=== PATIENT | male | born 1990 | race Caucasian/White ===

== ENCOUNTER 2020-07-13 17:49 | Emergency (ER) | payer OTHER, SELFPAY ==
--- NOTE | 2020-07-13 17:55 | ED.URI ---
HPI - URI/Sore Throat General Chief Complaint: Upper Respiratory Infection Stated Complaint: Sinus Pressure and headache Time Seen by Provider: 07/13/20 17:55 Source: patient and RN notes reviewed History of Present Illness HPI Narrative: Patient is a 29-year-old male who presents the urgent care with complaints of sinus pressure and headache. Patient states is been going on for 1 week and he believes he picked it up from his daughter who had a cold last week. Patient denies of any fever, chills, nausea, vomiting, shortness of breath. Patient denies of any known exposure to Covid, influenza or strep. Patient denies of a sore throat but states he does have a lot of drainage as well as a mild nonproductive cough. Patient states that he has been taking cold and flu medication [id number] as well as Tylenol for the headache. No other acute complaints. No acute distress noted. Patient aware of the plan of care. Some parts of this dictation were generated by voice recognition software and may contain typographical and/or grammatical inaccuracies. Related Data Allergies Allergy/AdvReac Type Severity Reaction Status Date / Time No Known Allergies Allergy Verified 07/13/20 17:58 Review of Systems Review of Systems: Narrative: CONSTITUTIONAL: Denies fever, chills, or sweats. EYES: Denies visual changes, redness, or discharge. ENT: Reports of sinus pressure, sinus congestion, postnasal drainage and rhinorrhea CARDIOVASCULAR: Denies chest pain, palpitations, or edema. RESPIRATORY: Reports of nonproductive cough without dyspnea GASTROINTESTINAL: Denies abdominal pain, nausea, vomiting, or diarrhea. GENITOURINARY: Denies dysuria or hematuria. SKIN: Denies rash or itching. MUSCULOSKELETAL: Denies back pain, joint pain, or myalgia. NEUROLOGIC: Reports of intermittent headaches All other systems reviewed are negative, except as documented in HPI. PMFSH Comments At the time of my signature, I reviewed and agree with the nursing past medical, surgical, social, and family history. There is no relevant family history pertinent to the patient complaint. Exam Narrative: Exam Narrative: GENERAL: This is a well-nourished, well-developed patient, in no apparent distress. HEAD: normocephalic, atraumatic. Frontal sinus tenderness EYES: PERRL. Sclera clear/white. Vision is grossly intact. EARS: External ears normal, auditory canals clear and without drainage, mild fluid noted behind bilateral TMs without otitis, TMs normal without perforation. Hearing grossly intact. NOSE: External nose normal with no obvious nasal discharge, mild erythemic nares with clear rhinorrhea. THROAT: Mucous membranes moist, posterior pharynx clear. Moderate postnasal drainage NECK: Neck supple, non-tender without lymphadenopathy CARDIOVASCULAR: Regular rate and rhythm without murmurs, gallops, or rubs. RESPIRATORY: Clear to auscultation. Breath sounds equal bilaterally. No wheezes, rales, or rhonchi. GASTROINTESTINAL: Abdomen soft, non-tender, nondistended. Bowel sounds are active. No hepato-splenomegaly, or palpable masses. No guarding. SKIN: warm, intact with no suspicious lesions or rash, good texture and turgor. NEURO: awake, alert, and oriented to person, place and time. There were no obvious focal neurologic abnormalities. EXTREMITIES: No clubbing, cyanosis, or edema. Course Vital Signs Vital signs: Vital Signs Temperature 98.6 F 07/13/20 17:56 Pulse Rate 82 07/13/20 17:56 Respiratory Rate 18 07/13/20 17:56 Blood Pressure 137/81 07/13/20 17:56 Pulse Oximetry 99 07/13/20 17:56 Temperature 98.6 F 07/13/20 17:56 Pulse Rate 82 07/13/20 17:56 Respiratory Rate 18 07/13/20 17:56 Blood Pressure 137/81 07/13/20 17:56 Pulse Oximetry 99 07/13/20 17:56 Reviewed MDM - URI/Sore Throat MDM Narrative Medical decision making narrative: Advised the patient to use an [id number] antihistamine such as Claritin/Zyrtec in conjunction with
[2020-07-13 17:56] VITALS: BP 137/81; PULSE 82; RESP 18; TEMP 37; O2SAT 99
== END 2020-07-13 18:06 | disposition home or self-care (01) ==
PROVIDERS: Emergency Provider Nurse Practitioner Family
DX: J01.80 Other acute sinusitis (principal)
CPT/HCPCS: 99213; G0463

== ENCOUNTER 2022-11-19 14:52 | Emergency (ER) | payer OTHER, SELFPAY ==
[2022-11-19 15:00] VITALS: BP 133/80; PULSE 69; RESP 20; TEMP 36.7; O2SAT 100
--- NOTE | 2022-11-19 15:31 | ED.WOUNDLAC ---
HPI - Wound/Laceration General Chief Complaint: Wound/Laceration Stated Complaint: lac on head Time Seen by Provider: 11/19/22 15:15 Source: patient, RN notes reviewed and old records reviewed Mode of arrival: ambulatory Limitations: no limitations History of Present Illness HPI narrative: 31-year-old male presents to [facility] with complaints of laceration to his scalp left frontal scalp area at hairline. He reports that he hit head on hook on the door of toilet stall at work around 0930 this morning.. Patient reports no LOC or any other wounds. Patient has 2cm linear laceration to frontal left scalp area at hairline with some blood oozing from wound area.Patient reports that his tetanus is up to date. he is in . Onset (ago): hour(s) (0930 this morning) Location: scalp Place: work Patient tetanus UTD: Yes Treatments prior to arrival: bandage Related Data Allergies Allergy/AdvReac Type Severity Reaction Status Date / Time No Known Allergies Allergy Verified 11/19/22 15:21 Review of Systems Review of Systems: CONSTITUTIONAL: Denies fever, chills, or sweats. CARDIOVASCULAR: Denies chest pain, palpitations, or edema. RESPIRATORY: Denies cough or dyspnea. SKIN: Reports laceration to the scalp frontal left scalp area at hairline MUSCULOSKELETAL: Denies musculoskeletal pain NEUROLOGIC: Denies numbness, or weakness.denies any LOC All systems reviewed & are unremarkable except as noted in HPI and below PMFSH Social History Social History (Updated 11/20/22 @ 21:15 by Judi Marie NP) Smoking status: Never smoker Alcohol intake: current Alcohol use details: social Substance use type: does not use Living arrangements: with family Gender identity (if verbalized by the patient): Male Comments At time of signature, agree with nursing past medical, surgical, social and family history. There is no relevant family history pertinent to the presenting complaint Exam Narrative: GENERAL: Well-appearing, well-nourished, and in no acute distress. HEAD: Normocephalic, atraumatic. NECK: Supple. no lymphadenopathy CHEST: Clear to auscultation. No respiratory distress.SAO2 100% on room air HEART: Regular rate and rhythm. No murmur heard. Normal peripheral pulses. EXTREMITIES: Normal range of motion. No edema. SKIN: Warm, dry, no rash. Reports scalp laceration to frontal left scalp at hairline 2cm linear laceration NEURO: No focal deficits. Alert and oriented x3. denies any LOC at time of incident Course Course Level of Care: Express Care Visit Vital Signs Vital signs: Vital Signs Temperature 36.7 C 11/19/22 15:00 Pulse Rate 69 11/19/22 15:00 Respiratory Rate 20 11/19/22 15:00 Blood Pressure 133/80 11/19/22 15:00 Pulse Oximetry 100 11/19/22 15:00 Oxygen Delivery Room Air 11/19/22 15:00 Temperature 36.7 C 11/19/22 15:00 Pulse Rate 69 11/19/22 15:00 Respiratory Rate 20 11/19/22 15:00 Blood Pressure 133/80 11/19/22 15:00 Pulse Oximetry 100 11/19/22 15:00 Oxygen Delivery Room Air 11/19/22 15:00 Procedures Laceration scalp: Date: 11/19/22 Time: 15:30 Site: scalp Side (If applicable): left Size (cm): 2 Description: linear Depth: simple, single layer Local Anesthetic: lidocaine 1% Amount of anesthesia used (mL): 2 Pre-repair: wound explored, irrigated and irrigated extensively ====== Skin Level ====== Skin layer closed with: alina Number of sutures: 5 ====== Subcutaneous Layer ====== ====== Muscle Layer ====== ====== Tendon Layer ====== Dressing: Scalp laceration cleansed with wound cleanser and irrigated wound localized with Lidocaine 1% 2 cc edges approximated and alina X 5 applied, patient tolerated well. MDM - Wound/Laceration MDM Narrative Medical decision making narrative: Wound explored for foreign body and copious irrigati
== END 2022-11-19 16:04 | disposition home or self-care (01) ==
PROVIDERS: Emergency Provider Registered Nurse
DX: S01.01XA Laceration without foreign body of scalp, initial encounter (principal); W22.8XXA Striking against or struck by other objects, initial encounter
CPT/HCPCS: 12001; 99213; G0463

== ENCOUNTER 2022-12-07 08:52 | Emergency (ER) | payer OTHER, SELFPAY ==
--- NOTE | ~2022-12-07 | XR_ITS ---
XR lumbar spine 2-3V 12/07/2022 10:05 Indication: Low back pain for 2 days Procedure: 3 views lumbar spine Comparison: No prior studies for comparison. Findings: Vertebral body heights are maintained. No fracture, subluxation or dislocation. Pedicles in tact. Sacral foramen are symmetric. No evidence for spondylolisthesis. Impression: 1: No significant abnormality of the lumbar spine. Reviewed, dictated and finalized at location A. Impression: 1: No significant abnormality of the lumbar spine.
[2022-12-07 09:22] VITALS: BP 114/77; PULSE 70; RESP 20; TEMP 36.4; O2SAT 98
--- NOTE | 2022-12-07 09:38 | ED.BACK ---
HPI - Back Pain/Injury General Chief Complaint: Back Pain/Injury Stated Complaint: back pain Time Seen by Provider: 12/07/22 09:01 Source: patient Mode of arrival: ambulatory Limitations: no limitations History of Present Illness HPI Narrative: 31-year-old male presents to [facility] with complaints of lower back pain for the past 2-3 days. Patient denies injury. Patient reports the pain is constant. Patient denies numbness, tingling or bowel or bladder problems. Patient has been applying heat and taking [id number] ibuprofen with minimal relief. Patient denies prior back pain. Patient reports that he did have an adjustment from a chiropractor yesterday which helped the pain for approximately 20 minutes. MD elicited complaint: back pain Onset (ago): day(s) (2) Timing: constant Similar Symptoms Previously: No Location: lumbar spine Radiation: none Exacerbating factors: lifting Relieving factors: none Treatments prior to arrival: heat therapy and NSAIDS Related Data Allergies Allergy/AdvReac Type Severity Reaction Status Date / Time No Known Allergies Allergy Verified 12/07/22 09:38 Review of Systems Constitutional: Constitutional: Denies chills, Denies fatigue, Denies fever(s) and Denies weakness ENT: Denies dizziness Cardiovascular: Cardiovascular: Denies chest pain Respiratory: Respiratory: Denies cough, Denies dyspnea and Denies wheezing Gastrointestinal: Gastrointestinal: Denies diarrhea, Denies nausea and Denies vomiting Genitourinary: Genitourinary: Denies dysuria Musculoskeletal: Musculoskeletal: Reports back pain, Denies myalgias, Denies joint swelling and Denies muscle cramps Integumentary/Breasts: Skin/Breast: Denies pruritus, Denies erythema and Denies rash Neurologic: Denies dizziness, Denies syncope and Denies headache(s) PMFSH Social History Social History Smoking status: Never smoker Alcohol intake: current Alcohol use details: social Substance use type: does not use Living arrangements: with family Gender identity (if verbalized by the patient): Male Comments At time of signature, I agree with nursing past medical, surgical, social and family history. There is no relevant family history pertinent to the presenting complaint. Exam Const: General: healthy appearing and no acute distress Nutritional Appearance: well nourished Orientation/consciousness: patient oriented x3 Limitations: no limitations HENMT: Head: normal to inspection Eyes: Conjunctivae: conjunctivae normal Neck: Neck: normal visual inspection Resp: Effort & Inspection: normal respiratory effort and not labored Auscultation: clear to auscultation bilaterally, no crackles, no rales, no rhonchi and no wheezes Cardio: Rate: regular rate Rhythm: regular rhythm Heart sounds: no murmurs GI: GI Palp: Yes Soft to palpation, No Tenderness to palpation present (GI), No Guarding due to palpation present (GI) and No Rigid due to palpation Back/Spine/Pelvis: Back: no CVA tenderness Other: Pain noted to lumbar region upon palpation. There is no swelling, bruising, erythema rash or open wounds noted. Full range of motion to back is noted. Gait is normal. Skin: General skin exam: normal color Rashes: no rashes Wounds: no wounds Neuro: General: patient oriented x3 Speech: normal speech Gait exam (Neuro): Normal gait present Extrem: General: normal to inspection Psych: Affect: normal affect Attitude: cooperative Course Course Level of Care: Express Care Visit Vital Signs Vital signs: Vital Signs Temperature 36.4 C 12/07/22 09:22 Pulse Rate 70 12/07/22 09:22 Respiratory Rate 20 12/07/22 09:22 Blood Pressure 114/77 12/07/22 09:22 Pulse Oximetry 98 12/07/22 09:22 Oxygen Delivery Room Air 12/07/22 09:22 Temperature 36.4 C 12/07/22 09:22 Pulse Rate 70 12/07/22 09:22 Respiratory Rate 20 12/07/22 09:22
== END 2022-12-07 10:19 | disposition home or self-care (01) ==
PROVIDERS: Emergency Provider Nurse Practitioner Family
DX: M54.50 Low back pain, unspecified (principal)
CPT/HCPCS: 72100; 81003; 99213; G0463

== ENCOUNTER 2023-01-27 17:00 | Emergency (ER) | payer OTHER, SELFPAY ==
[2023-01-27 17:11] VITALS: BP 144/74; PULSE 66; RESP 16; TEMP 36.4; O2SAT 96
--- NOTE | 2023-01-27 17:36 | ED.EAR ---
HPI - Ear Problem General Chief complaint: Ear Stated complaint: Ear Pain Time Seen by Provider: 01/27/23 17:37 Source: patient and RN notes reviewed Mode of arrival: ambulatory Limitations: no limitations History of Present Illness HPI Narrative: 32-year-old male presents with concern for nasal congestion for 1 week, ear pain for 4-5 days. He is taking Mucinex without relief. He denies fever or drainage from the ears. MD Complaint: ear pain Related Data Allergies Allergy/AdvReac Type Severity Reaction Status Date / Time No Known Allergies Allergy Verified 12/07/22 09:38 Review of Systems Review of Systems: CONSTITUTIONAL: Denies malaise, chills, sweats, or fever. EYES: Denies visual changes, redness, or discharge. ENT: Reports rhinorrhea, congestion. Denies sinus pain, and sore throat. Reports ear pain CARDIOVASCULAR: Denies chest pain, palpitations, or edema. RESPIRATORY: Denies cough. Denies dyspnea. GASTROINTESTINAL: Denies abdominal pain, nausea, vomiting, diarrhea SKIN: Denies rash or itching. MUSCULOSKELETAL: Denies myalgia. NEUROLOGIC: Denies headache. All systems reviewed & are unremarkable except as noted in HPI and below PMFSH Social History Social History Smoking status: Never smoker Alcohol intake: current Alcohol use details: social Substance use type: does not use Living arrangements: with family Gender identity (if verbalized by the patient): Male Comments At time of signature, agree with nursing past medical, surgical, social and family history. There is no relevant family history pertinent to the presenting complaint Exam Narrative: GENERAL: Well-appearing, well-nourished, and in no acute distress. HEAD: Normocephalic EYES: PERRLA, conjunctivae clear ENT: Nares clear, turbinates edematous, clear discharge. Mucous membranes moist. TM pearly morillo with dull light reflex bilaterally; no tragal tenderness. Oropharynx not erythematous without lesions. Tonsils not enlarged and without exudate, no drooling, no hoarseness, no trismus, uvula midline. NECK: Supple. No lymphadenopathy CHEST: Clear to auscultation, breath sounds equal. No wheezing, rhonchi, rales, or stridor. No respiratory distress, speaks in full sentences. HEART: Regular rate and rhythm. No murmur heard. SKIN: Warm, dry, no rash. NEURO: Alert and oriented x3. PSYCH: Normal mood and affect Course Course Emergency Course: Patient is aware of diagnosis, understands and agrees to treatment plan. Anticipatory guidance given. Patient agrees to follow-up as directed and is aware of reasons to seek care at the emergency department. Portions of this record may have been created with voice recognition software Level of Care: Express Care Visit Vital Signs Vital signs: Vital Signs Temperature 97.5 F L 01/27/23 17:11 Pulse Rate 66 01/27/23 17:11 Respiratory Rate 16 01/27/23 17:11 Blood Pressure 144/74 H 01/27/23 17:11 Pulse Oximetry 96 01/27/23 17:11 Oxygen Delivery Room Air 01/27/23 17:11 Temperature 97.5 F L 01/27/23 17:11 Pulse Rate 66 01/27/23 17:11 Respiratory Rate 16 01/27/23 17:11 Blood Pressure 144/74 H 01/27/23 17:11 Pulse Oximetry 96 01/27/23 17:11 Oxygen Delivery Room Air 01/27/23 17:11 Reviewed. Medical Decision Making MDM Narrative Medical decision making narrative: Differential diagnosis considered: Stovall virus, strep pharyngitis, allergic rhinitis, upper respiratory tract infection, sinusitis, rhinosinusitis, nasopharyngitis. viral pharyngitis, otitis media, otitis externa, otitis effusion, cerumen impaction, foreign body. Exam findings show no acute concerns or changes; patient is non-toxic appearing and is in no distress. Patient is appropriate for outpatient treatment and follow-up. Vital Signs Vital Signs: Vital Signs Temperature 97.5 F L 01/27/23 17:11 Pulse Rate 66 01/27/23 17:11 Respi
== END 2023-01-27 17:45 | disposition home or self-care (01) ==
PROVIDERS: Emergency Provider Nurse Practitioner
DX: H92.09 Otalgia, unspecified ear (principal)
CPT/HCPCS: 99213; G0463

== ENCOUNTER 2024-05-08 15:50 | Emergency (ER) | payer OTHER, SELFPAY ==
--- OUTSIDE RECORDS SUMMARY | 2024-05-08 15:57 | XMS_ITS | Continuity of Care Document ---
Author Name [facility] Organization [facility] Care Team Providers Care Donation Worker Name Role Phone [facility] Unavailable Unavailable Problems Combined list of problems from Department of Defense and Veterans Affairs facilities. It does not include entries that were removed or entered in error. Problem Status Onset Date Problem Type Date of Resolution Comme nts Source Nausea with vomiting, unspecified Active 02/25/2017 Condition DoD Allergies, Adverse Reactions, Alerts Combined list of allergies from Department of Defense and Veterans Affairs facilities. It does not include entries that were removed or entered in error. Substance Category Reaction Severity Reaction type Status Date Reported Comments Source No Known Allergies Drug allergy (disorder) active [facility], [place], [place] Immunizations Combined list of available immunizations from the Department of Defense and Veterans Affairs facilities. Immunization Series Date Given Administered By Site Reaction Lot Number CVX Code Drug Multi Media Specialist Status Comments Source influenza, injectable, quadrivalent- pf 2022 [id number] Seqirus complet ed influenza , injectabl e, quadrival ent-pf 03/01/23 Given Ambulat ory Pharmac y influenza, injectable, quadrivalent- pf 2021 [id number] 150 GlaxoSmithKli ne complet ed influenza , injectabl e, quadrival ent-pf 02/02/22 Given Ambulat ory Pharmac y COVID Vaccine Pfizer 2021 [id number] PFIZER complet ed COVID Vaccine Pfizer 05/26/21 Given Ambulat ory Pharmac y COVID Vaccine Pfizer 2021 [id number] PFIZER complet ed COVID Vaccine Pfizer 04/21/21 Given Ambulat ory Pharmac y influenza, injectable, quadrivalent- pf 2020 [id number] 150 GlaxoSmithKli ne complet ed influenza , injectabl e, quadrival ent-pf 01/11/21 Given Ambulat ory Pharmac y influenza, injectable, quadrivalent 2019 [id number] 158 Seqirus complet ed influenza , injectabl e, quadrival ent 11/13/20 Given Ambulat ory Pharmac y influenza, injectable, quadrivalent 2018 [id number] 158 Seqirus complet ed influenza , injectabl e, quadrival ent 02/09/19 Given Ambulat ory Pharmac y anthrax vaccine 2018 [id number] 24 Emergent Biosolutions complet ed anthrax vaccine 01/28/19 Given Ambulat ory Pharmac y vaccinia (smallpox) vaccine 2018 [id number] 75 Sanofi Pasteur Incorporated complet ed vaccinia (smallpox ) vaccine 11/09/18 Given Ambulat ory Pharmac y anthrax vaccine 2018 [id number] Emergent Biosolutions complet ed anthrax vaccine 11/09/18 Given Ambulat ory Pharmac y anthrax vaccine 1 2018 [id number] 24 Emergent [employer] [place] (MIP) complet ed anthrax vaccine DoD vaccinia (smallpox) vaccine 1 2018 [id number] 75 (SHARDA) complet ed vaccinia (smallpox ) vaccine DoD influenza, injectable, quadrivalent- pf 2017 [id number] 150 GlaxoSmithKli ne complet ed influenza , injectabl e, quadrival ent-pf 02/02/18 Given Ambulat ory Pharmac y typhoid Vi capsular polysaccharid e vac 2017 [id number] 101 sanofi pasteur complet ed typhoid Vi capsular polysacch aride vac 02/02/18 Given Ambulat ory Pharmac y typhoid Vi capsular polysaccharid e vaccine 1 2017 [id number] 101 Sanofi Pasteur (PMC) complet ed typhoid Vi capsular polysacch aride vaccine DoD Influenza, injectable, quadrivalent, preservative free 1 2017 [id number] 150 [employer]line (SKB) complet ed Influenza , injectabl e, quadrival ent, preservat maura free DoD Influenza, inj, MDCK, quadrivalent- pf 2016 [id number] 171 Seqirus complet ed Influenza , inj, MDCK, quadrival ent-pf 02/12/17 Given Ambulat ory Pharmac y Influenza, injectable, Madin Paola Canine Kidney, preservative free, quadrivalent 1 2016 [id number] 171 Seqirus (SEQ) comple t ed Influenza , injectabl e, Madin Paola Canine Kidney, preservat maura free, quadrival ent DoD hepatitis A-hepatitis B vaccine 2016 Candice t Arm [id number] 104 GlaxoSmithKli ne complet ed hepatitis A-hepatit is B vaccine 05/28/16 Given Ambulat ory Pharmac y hepatitis A and hepatitis B vaccine 3 2016 NIURKA HORTON [id number] 104 [facility] ([facility] complet ed hepatitis A and hepatitis B vaccine DoD influenza, seasonal, injectable-pf 2015 zzRig ht Arm [id number] 140 CSL Behring complet ed influenza , seasonal, injectabl e-pf 01/09/16 Given Ambulat ory Pharmac y Influenza, seasonal, injectable, preservative free 0 2015 YNES STERN I [id number] 140 [facility] [employer] [place] ([facility]) complet ed Influenza , seasonal, injectabl e, preservat maura free DoD hepatitis A-hepatitis B vaccine 2015 [id number] 104 GlaxoSmithKli ne complet ed hepatitis A-hepatit is B vaccine 11/24/15 Given Ambulat ory Pharmac y hepatitis A and hepatitis B vaccine 2 2015 [id number] 104 [employer] ([facility]) complet ed hepatitis A and hepatitis B vaccine DoD adenovirus vaccine, live 2015 [id number] Teva Pharmaceutica complet ed adenoviru s vaccine, live 10/21/15 Given Ambulat ory Pharmac y tetanus, diphtheria, acellular pertu is 2015 [id number] 115 GlaxoSmithKli ne complet ed tetanus, diphtheri a, acellular pertussis 10/21/15 Given Ambulat ory Pharmac y meningococcal A,C,Y,W-135 (MCV4P) 2015 [id number] 114 sanofi pasteur complet ed meningoco ccal A,C,Y,W-1 35 (MCV4P) 10/21/15 Given Ambulat ory Pharmac y hepatitis A-hepatitis B vaccine 2015 [id number] 104 GlaxoSmithKli ne complet ed hepatitis A-hepatit is B vaccine 10/21/15 Given Ambulat ory Pharmac y poliovirus vaccine, inactivated 2015 [id number] 10 sanofi pasteur complet ed polioviru s vaccine, inactivat ed 10/21/15 Given Ambulat ory Pharmac y poliovirus vaccine, inactivated 1 2015 [id number] 10 Sanofi Pasteur ([facility]) complet ed polioviru s vaccine, inactivat ed DoD hepatitis A and hepatitis B vaccine 1 2015 [id number] 104 [facility] (SKB) complet ed hepatitis A and hepatitis B vaccine DoD meningococcal polysaccharid e (groups A, C, Y and W-135) diphtheria toxoid conjugate vaccine (MCV4P) 1 2015 [id number] 114 Sanofi Pasteur ([facility]) complet ed meningoco ccal polysacch aride (groups A, C, Y and W-135) diphtheri a toxoid conjugate vaccine (MCV4P) DoD tetanus toxoid, reduced diphtheria toxoid, and acellular pertu is vaccine, adsorbed 1 2015 [id number] 115 [facility] (SKB) complet ed tetanus toxoid, reduced diphtheri a toxoid, and acellular pertussis vaccine, adsorbed DoD Adenovirus, type 4 and type 7, live, oral 1 2015 [id number] [place] [address] ([facility]) complet ed Adenoviru s, type 4 and type 7, live, oral DoD measles, mumps and rubella virus vaccine 1 2015 UNK 03 Unknown (UNK) Not Given measles, mumps and rubella virus vaccine DoD varicella virus vaccine 1 2015 UNK 21 Unknown (UNK) Not Given varicella virus vaccine DoD poliovirus vaccine, inactivated 2003 [id number] 10 sanofi pasteur complet ed polioviru s vaccine, inactivat ed 03/23/03 Given Ambulat ory Pharmac y measles/mumps /rubella virus vaccine 2003 [id number] 03 Merck & Company Inc complet ed measles/m umps/rube lla virus vaccine 03/23/03 Given Ambulat ory Pharmac y tetanus-dipht h toxoids (Td) adult/adol 2001 [id number] 09 sanofi pasteur complet ed tetanus-d iphth toxoids (Td) adult/ado l 01/06/02 Given Ambulat ory Pharmac y hepatitis B pediatric/ado lescent 1997 08 complet ed hepatitis B pediatric /adolesce nt 05/11/97 Given Ambulat ory Pharmac y hepatitis B pediatric/ado lescent 1996 08 complet ed hepatitis B pediatric /adolesce nt 12/08/96 Given Ambulat ory Pharmac y hepatitis B pediatric/ado lescent 1996 08 complet ed hepatitis B pediatric /adolesce nt 10/25/96 Given Ambulat ory Pharmac y poliovirus vaccine, live, oral 1990 02 complet ed polioviru s vaccine, live, oral 06/18/90 Given Ambulat ory Pharmac y DTaP 1990 20 complet ed DTaP 06/18/90 Given Ambulat ory Pharmac y Hib, unspecified formulation 1990 17 complet ed Hib, unspecifi ed formulati on 06/18/90 Given Ambulat ory Pharmac y poliovirus vaccine, live, oral 1990 02 complet ed polioviru s vaccine, live, oral 03/19/90 Given Ambulat ory Pharmac y DTaP 1990 20 complet ed DTaP 03/19/90 Given Ambulat ory Pharmac y poliovirus vaccine, live, oral 1989 02 complet ed polioviru s vaccine, live, oral 02/16/90 Given Ambulat ory Pharmac y DTaP 1989 20 complet ed DTaP 02/16/90 Given Ambulat ory Pharmac y Encounters Combined list of: 1) Encounters from Department of Veterans Affairs facilities going backup to the last 18 months, not all VA inpatient encounters are included; 2) Encounters from the Department of Defense facilities going backup to 280 months. Location Location Details Encounter Type Encounter Number Reason For Visit Attending Provider ADM Date DC Date Status Disposition Source [facility] C Immunizat ions (Post)) OUTPATIENT [id number] IET LAMAR VEGA 10/22 Released w/o Limitations [facility] Immuniz ations (Post)) DEX [facility]) OUTPATIENT [id number] Notes Entered by: FABIO ANDREWS 15 Jan 2016 0858 ------- ------- ------- ------- -- Flu Vaccina tion FABIO ANDREWS 01/14 Released w/o Limitations DEX [facility]) DEX [facility] S02B Leak AIT) OUTPATIENT [id number] RIGHT KNEE PAIN JONES PACHECO 01/16 Released w/o Limitations [facility] [employer] [place]) [facility] [employer] OUTPATIENT [id number] Iliotib ial band syndrom e, right leg/AIT JENNIFER PASCAL 01/17 Released w/o Limitations [facility] [employer] [facility] [employer] [id number] rt knee AIT C 178 HEIKE MIRELES 01/18 Released w/o Limitations [facility] [employer] [facility] [employer] [id number] rt knee AIT C 178 HEIKE MIRELES E 01/21 Released w/o Limitations [facility] [employer] [facility] [employer]) [place] [id number] rt knee AIT C 78 ALEJANDRA SPRINGER 01/23 Released with Work/Duty Limitations [facility] [employer] [facility], [employer] [place], [place]([facility] S[facility] [place]) OUTPATIENT [id number] immuniz NIURKA Trent 05/28 Released w/o Limitations [facility], [employer] [place] [facility] [facility], [employer] [place] [place] OUTPATIENT [id number] annual KAYLIN RODRIGUEZ 10/21 Released w/o Limitations [facility], [employer] ) [facility], [employer] [place] OUTPATIENT [id number] nausea/ vomitin g ELISA TEJADA 02/25 Released w/o Limitations [facility], [employer] [facility], [employer] [place] OUTPATIENT [id number] NOELLE Goldman 03/20 Released w/o Limitations [facility], [employer] [facility], [employer] [place] TELE CONSULT [id number] Notes Entered by: CADEN GUNDERSON CONCEPT ION 21 Mar 2017 1008 ------- ------- ------- ------- -- needs Lab orders for ABCP EZIO WONG PA-C 03/21 [facility], [employer] [facility], [employer] [place] OUTPATIENT [id number] ABCP screeni ng 320 EZIO WONG PA-C 04/03 Released w/o Limitations [facility], [employer] [facility], [facility] [place](Nut[place]) OUTPATIENT [id number] abcp class HA KELLOGG 04/04 Released w/o Limitations [facility], [employer] [facility], [facility] [place]) OUTPATIENT [id number] MATEUS JOHN 04/11 Released w/o Limitations [facility], [employer] [facility], [facility] [place]) OUTPATIENT [id number] MATEUS JOHN 04/18 Released w/o Limitations [facility], [employer] [facility], [employer] [place]) OUTPATIENT [id number] LUDIVINA MCCANN 04/25 Released w/o Limitations [facility], [employer] [facility], [employer] [place]) [place] [id number] AH KELLOGG 05/09 Released w/o Limitations [facility], [employer]([facility]) OUTPATIENT [id number] Notes Entered by: MEAGAN BRYANT 02 Aug 2017 0924 ------- ------- ------- ------- -- Nose Pain MEAGAN ESTES 08/02 Released w/o Limitations [place]([facility]) [facility], [place], [place]) OUTPATIENT [id number] annual MALLORIE HARPER V 10/06 Released w/o Limitations [facility], [place], [place]([facility] ) [facility], [place]) OUTPATIENT [id number] Notes Entered by: MICHELLE HARPER V 06 Oct 2017 1439 ------- ------- ------- ------- -- annual MALLORIE HARPER V 10/06 Released w/o Limitations [facility], [place] [place] [facility], [place] [place] TELE CONSULT [id number] Notes Entered by: TOMER RICKETTS 11 Dec 2017 1036 ------- ------- ------- ------- -- CECI NAM APPT/SE E NONA ALSTON 12/11 [facility], [employer] [place] [place]) [facility], [place] [facility] OUTPATIENT [id number] PHA NONA [place] 12/24 Released w/o Limitations [facility] [place], [place] OUTPATIENT [id number] 6 n/v NOELLE BREEN 02/16 Released w/o Limitations [facility], [employer] [place] [facility] [facility], [place]([facility] Hearing [facility]) OUTPATIENT [id number] annual KVNG HEREDIA 09/08 Released w/o Limitations [facility], [place]([facility] ) [facility], [place]([facility] S[facility]A Strike) OUTPATIENT [id number] L/toe/p NONA Lujan 10/27 Released with Work/Duty Limitations [facility], [place]([facility] S[facility]) [facility], [place]([facility]) OUTPATIENT [id number] Notes Entered by: Miguel [place] 09 Nov 2018 0859 ------- ------- ------- ------- -- Smallpo x Screeni NONA Coley 11/09 Released w/o Limitations [facility], [place]([facility]) [facility], [place]([facility] [place]) TELE CONSULT [id number] Notes Entered by: CAYLA LOBO RA 28 Jan 2019 1335 ------- ------- ------- ------- -- VALENCIA/Silvia HASE 1/SEE NOTES NONA [place] 01/28 [facility], [place]([facility] S[facility]) [facility], [place]([facility] S[facility]) OUTPATIENT [id number] 2 phase 1/ETS/s BRADLEY Jack 02/02 Released w/o Limitations [facility], [place]([facility] S[facility]) [facility], [place]([facility] S[facility] Rakk) OUTPATIENT [id number] Notes Entered by: BRIAN ROWE 02 Feb 2019 1514 ------- ------- ------- ------- -- PHASE 1 ARLET VALENTINO 02/02 Released w/o Limitations [facility], [place]([facility] S[facility]C Rakk) [facility], [place]([facility] S[facility]A [facility]) TELE CONSULT [id number] Notes Entered by: SAFIA SALAS 08 Feb 2019 1441 ------- ------- ------- ------- -- resched EVANGELISTA Rider 02/08 Referred for Appointment [facility], [place]([facility] S[facility]) [facility], [place]([facility] S[facility]A [facility]) TELE CONSULT [id number] Notes Entered by: DEBBY BEATTY 16 Feb 2019 0921 ------- ------- ------- ------- -- Phase 2 ETS Physica l NETTA DOMINGUEZ 02/16 Other Not Elsewhere Classified [facility], [place]([facility] S[facility]) [facility], [place]([facility] S[facility]A [facility]) TELE CONSULT [id number] Notes Entered by: EUN DOMINGUEZ 16 Feb 2019 1513 ------- ------- ------- ------- -- ATTEMPT TO SCHEDUL E PHASE 2 ETS PHYSICA L NETTA DOMINGUEZ 02/16 Other Not Elsewhere Classified [facility], [place]([facility] S[facility]) [facility], [place] [place]([facility] S[facility]A [facility]) OUTPATIENT [id number] Phase2/ ets NONA [place] 02/17 Released w/o Limitations [facility], [place]([facility] S01A Strike) No Facility Access History [id number] 06/03 No Facilit y Access Ambulator y Pharmacy [facility] [id number] 06/03 Ambulat ory Pharmac y 0055C-375 th [facility] Between Visit [id number] 04/02 Discharge Disposition: Home or Self Care 0055C-3 75[facility] [place] Procedures Combined list of: 1) Procedures from Department of Veterans Affairs facilities going back up to thelast 18 months, not all VA non-surgical procedures are included; 2) All procedures from the Department of Defense facilities. Procedure Procedure Type Code Date Perfomer Comments Sourc e No data available for this section Ambulato ry Pharmacy Threshold Audiogram (Pure Tone) Automated Threshold Audiogram (Pure Tone) Automated 0208T 2018 KVNG HEREDIA Threshold Audiogram (Pure Tone) Automated Threshold Audiogram (Pure Tone) Automated 0208T 2017 MALLORIE HARPER Threshold Audiogram (Pure Tone) Automated Threshold Audiogram (Pure Tone) Automated 0208T 2017 MALLORIE HARPER V [facility] Therapy Group (2 or More Individuals) Each 30 Minutes Medical Nutrition Therapy Group (2 or More Individuals) Each 30 Minutes 02031 2017 HA KELLOGG [facility] (2 or More Individuals) Each 30 Minutes Medical [facility] Therapy Group (2 or More Individuals) Each 30 Minutes [id number] 2017 LUDIVINA MCCANN [facility] Group (2 or More Individuals) Each 30 Minutes Medical Nutrition Therapy Group (2 or More Individuals) Each 30 Minutes 65765 2017 DORA MATEUS E [facility] Therapy Group (2 or More Individuals) Each 30 Minutes Medical Nutrition Therapy Group (2 or More Individuals) Each 30 Minutes 13527 2017 DORA, MATEUS E [facility] Group (2 or More Individuals) Each 30 Minutes Medical Nutrition Therapy Group (2 or More Individuals) Each 30 Minutes 84742 2017 HA KELLOGG [facility] Threshold Audiogram (Pure Tone) Automated Threshold Audiogram (Pure Tone) Automated 0208T 2016 KAYLIN RODRIGUEZ Hepatitis A And Hepatitis B (Intramuscular Use) Adult Dosage Hepatitis A And Hepatitis B (Intramuscular Use) Adult Dosage 28886 2016 MESSMER, NIURKA Hep A-Hep B; Series #: 3; 1.0 mL; IM; Left Arm; Mfg: [employer]; Lot: [id number]. 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 Subjectively unchanged since last visit. Patient has been compliant with rehabilitation plan. Physical exam is unremarkable today- no tenderness to palpation, no pain with iliotibial band provocative testing, no iliotibial band tightness. Patient should benefit from continued home exercises- add to regular workout routine, profile for gradual return to activity as tolerated. Diogo Injection, dexamethasone sodium phosphate, 1 mg 2015 HEIKE MIRELES 2.5 mL of 4 mg/mL Dexamethasone Sodium Phosphate [facility] Modalities Iontophoresis Modalities Iontophoresis 30047 2015 HEIKE MIRELES Physical Medicine - Group Physical Therapy Se ion Physical Medicine - Group Physical Therapy Session [id number] 2015 HEIKE MIRELES Physical Therapy: ___ Se ion Segments, 15 Minutes Each Physical Therapy: ___ Session Segments, 15 Minutes Each 13267 2015 HEIKE MIRELES Physical Medicine - Group Physical Therapy Se ion Physical Medicine - Group Physical Therapy Session [id number] 2015 HEIKE MIRELES Physical Therapy: ___ Se ion Segments, 15 Minutes Each Physical Therapy: ___ Session Segments, 15 Minutes Each 85669 2015 HEIKE MIRELES [facility] Injection, dexamethasone sodium phosphate, 1 mg 2015 JENNIFER PASCAL Modalities Iontophoresis Modalities Iontophoresis 77894 2015 JENNIFER PASCAL A isted Exercises For ROM Assisted Exercises For ROM 45922 2015 JENNIFER PASCAL Physical Therapy Service Evaluation Physical Therapy Service Evaluation 58623 2015 JENNIFER PASCAL Influenza Split Virus Vaccine 0.5mL Dosage Intramuscular Preservative Free 2015 FABIO ANDREWS [facility] Immunization Administration By Injection, One Vaccine Immunization Administration By Injection, One Vaccine 98092 2015 JULIANA FABIO M [facility] Tdap Vaccine Tdap Vaccine 93645 2015 [facility] Meningococcal Conjugate Vaccine Quadrivalent Serogroups A, C, Y, W-135 2015 [facility] Vaccines Viral Polio, Inactivated Vaccines Viral Polio, Inactivated 30080 2015 [facility] Hepatitis A And Hepatitis B (Intramuscular Use) Adult Dosage Hepatitis A And Hepatitis B (Intramuscular Use) Adult Dosage 68638 2015 [facility] Immunization Administration By Injection, Each Additional Vaccine Immunization Administration By Injection, Each Additional Vaccine 33639 2015 [facility] Immunization Administration By Injection, One Vaccine Immunization Administration By Injection, One Vaccine 07818 2015 [facility] Immunization Admin Intranasal / Oral Each Additional Vaccine Immunization Admin Intranasal / Oral Each Additional Vaccine 77799 2015 [facility] Vaccines Adenovirus Type 4 Live, For Oral Use Vaccines Adenovirus Type 4 Live, For Oral Use 29133 2015 [facility] Vaccines Adenovirus Type 7 Live, For Oral Use Vaccines Adenovirus Type 7 Live, For Oral Use 05879 2015 [facility] Health And Behav Intervention, Each Additional 15 Min Grp (2 Or More) Health And Behav Intervention, Each Additional 15 Min Grp (2 Or More) 69035 ARLET VALENTINO [facility] Non-Physician Phone Call To Patient/Provider Brief (5-10min) Non-Physician Phone Call To Patient/Provider Brief (5-10min) 83520 NETTA DOMINGUEZ [facility] Social History Combined list of available smoking, tobacco, and other social history from Department of Defense and Veterans Affairs facilities. Social History Type Response Date Comment Sourc e This section is an empty social history section. DoD Assessment and Plan Combined list of future care activities from Department of Defense and Veterans Affairs facilities (e.g., assessment and plan notes, appointments, orders, and referrals). Additional future care activities may be listed in the Plan of Care section. Result Assessment and Plan Date Source Assessment and Plan No data available for this section 05/08/2024 Ambulatory Pharmacy Functional Status Combined list of recent functional and cognitive assessments recorded at Department of Defense and Veterans Affairs (VA).VA Functional Stephenson Measurement (FIM) Scale: 1 = Total Assistance (Subject = 0% +), 2 = Maximal Assistance (Subject = 25% +), 3 = Moderate Assistance (Subject = 50% +), 4 = Minimal Assistance (Subject = 75% +), 5 = Supervision, 6 = Modified Stephenson (Device), 7 = Complete Stephenson (Timely, Safely). Assessment Date/Time Source Assessment Type Assessment Skill Assessment Score Assessment Details No data available for this section
--- OUTSIDE RECORDS SUMMARY | 2024-05-08 15:57 | XMS_ITS | Referral Summary ---
Author Organization [facility] Address [address] [place] [address] Care Team Providers Care Middle [employer] Coach Name Role Phone Unknown, Notinfile Primary Care Provider Unavail able Encounters Date Type Department Care Team Description 04/27/2024 8:20 AM AUTO SERVICER Office Visit [facility] Surgery [address] [place] [address] [place] [phone] Davis Law MD Status post vasectomy (Primary Dx); Encounter for vasectomy 04/22/2024 2:00 PM AUTO SERVICER Office Visit [facility] Surgery [address] [place] [address] [address] [place] [phone] Davis Law MD Encounter for vasectomy 04/19/2024 Telephone [facility] Surgery [address] [place] [address] [place] [phone] House, Kimber, RMA from Last 3 Months Allergies No known active allergies Medications gentamicin (GARAMYCIN) 0.3 % ophthalmic solution Administer 2 drops into the right eye every 4 (four) hours 5 mL 9 Active Additional Information Patient not taking.Reported on 04/27/2024 cyclobenzaprine (FLEXERIL) 10 mg tabletIndicatio ns:back pain Take 1 tablet (10 mg total) by mouth 2 (two) times a day as needed for muscle spasms 20 tablet 1 Active Additional Information Patient not taking.Reported on 04/27/2024 Hospital, Clinic, or Other Facility Administered Medication Ordered Dose Route Frequency Start Date End Date Status lidocaine (XYLOCAINE) 10 mg/mL (1 %) injection 200 mgIndications:Administratio n of Local Anesthesia 200 mg OTHER Once 04/27/2024 04/27/2024 End ed Active Problems Problem Noted Date Diagnosed Date Encounter for sterilization 04/27/2024 Nausea with vomiting, unspecified 02/25/2017 Left wrist pain 04/22/2014 Social History Tobacco Use Types Packs/Day Years Used Date Smoking Tobacco: Never Smokeless Tobacco: Never Alcohol Use Standard Drinks/Week Comments Not Currently 0 (1 standard drink = 0.6 oz pur e alcohol) AUDIT-C Answer Date Recorded Q1: How often do you have a drink containing alc ohol? Monthly or less 05/05/2024 Q2: How many drinks containi ng alcohol do you have on a typical day when you are drinking? 1 or 2 05/05/2024 Q3: How often do you have si x or more drinks on one occasion? Never 05/05/2024 Personal Safety Answer Date Recorded Have you ever been in or are you currently in a harmful physical or emotional relationship or is someone making you feel afraid or unsafe? Denies 05/05/2024 Sex and Gender Information Value Date Recorded Sex Assigned at Not on file Legal Sex Male 3:49 AM AUTO SERVICER Gender Identity Not on file Sexual Orientation Not on file Last Filed Vital Signs Vital Sign Reading Time Taken Comments Blood Pressure 116/77 04/27/2024 8:01 AM AUTO SERVICER Pulse 74 04/27/2024 8:01 AM AUTO SERVICER Temperature 36.6 C (97.8 F) 04/22/2024 2:10 PM AUTO SERVICER Respiratory Rate 20 12/07/2020 1:35 PM CDT Oxygen Saturation 94% 12/07/2020 4:05 PM CDT Inhaled Oxygen Concentration - - Weight 99.8 kg (220 lb) 05/05/2024 10:57 AM AUTO SERVICER Height 177.8 cm (5' 10 ) 05/05/2024 10:57 AM AUTO SERVICER Body Mass Index 31.57 05/05/2024 10:57 AM AUTO SERVICER Plan of Treatment Upcoming Encounters Date Type Department Care Team (Latest Contact Info) Description 05/12/2024 11:30 AM AUTO SERVICER Hospital Encounter [facility] [place] [address] [place] [address] Davis Law MD [address] [facility] [place] [address] 05/12/2024 11:30 AM AUTO SERVICER Anesthesia Event [facility] [place] [address] [place] [phone] Sánchez Hernández MD [address] [place] [phone] 05/12/2024 11:30 AM AUTO SERVICER - 05/12/2024 12:40 PM AUTO SERVICER Surgery [facility] [place] [address] [place] [phone] Davis Law MD [address] [facility] [address] [place] [address] BILATERAL VASECTOMY Scheduled Procedures Name Priority Associated Diagnoses Date/Ti me VASECTOMY Encounter for sterilization 05/12/2024 11:30 AM AUTO SERVICER Insurance [facility] Care Teams Middle School Coach Relationship Specialty Start Date End Date Unknown, Notinfile PCP - General 04/16/24
--- OUTSIDE RECORDS SUMMARY | 2024-05-08 15:57 | XMS_ITS | Clinical Summary ---
Author Organization [facility] Address [address] [place] [address] Care Team Providers Care Conveyor Tender Name Role Phone Unknown, Notinfile Primary Care Provider Unavail able Allergies No known active allergies Medications gentamicin [...] vomiting, unspecified 02/25/2017 Left wrist pain 04/22/2014 Encounters Date Type Department Care Team Description 04/27/2024 8:20 AM EDGING SUPERVISOR Office Visit [facility] Surgery [address] [place] [address] [address] [place] [phone] Davis Law MD Status post vasectomy (Primary Dx); Encounter for vasectomy 04/22/2024 2:00 PM EDGING SUPERVISOR Office Visit [facility] Surgery [address] [place] [address] [address] [place] [phone] Davis Law MD Encounter for vasectomy 04/19/2024 Telephone [facility] Surgery [address] [facility] [address] [place] [phone] Kimber House RMA from Last 3 Months Surgical History Surgery Date Site/Laterality Comments NO PAST SURGERIES 05/05/2024 Medical History Medical History Date Comments No known health problems 05/05/2024 Social History Tobacco Use Types Packs/Day Years [...] on file Legal Sex Male 3:49 AM EDGING SUPERVISOR Gender Identity Not on file Sexual Orientation Not on file Obstetrics History Last Filed Vital Signs Vital Sign Reading Time Taken Comments Blood Pressure 116/77 04/27/2024 8:01 AM EDGING SUPERVISOR Pulse 74 04/27/2024 8:01 AM EDGING SUPERVISOR Temperature 36.6 C (97.8 F) 04/22/2024 2:10 PM EDGING SUPERVISOR Respiratory Rate 20 12/07/2020 1:35 PM CDT Oxygen Saturation 94% 12/07/2020 4:05 PM CDT Inhaled Oxygen Concentration - - Weight 99.8 kg (220 lb) 05/05/2024 10:57 AM EDGING SUPERVISOR Height 177.8 cm (5' 10 ) 05/05/2024 10:57 AM EDGING SUPERVISOR Body Mass Index 31.57 05/05/2024 10:57 AM EDGING SUPERVISOR Plan of Treatment Upcoming Encounters Date Type Department Care Team (Latest Contact Info) Description 05/12/2024 11:30 AM EDGING SUPERVISOR Hospital Encounter [facility] [place] [address] [place] [phone] Davis Law MD [address] [place] [address] 05/12/2024 11:30 AM EDGING SUPERVISOR Anesthesia Event [facility] [place] [address] [place] [phone] Sánchez Hernández MD [address] [place] [phone] 05/12/2024 11:30 AM EDGING SUPERVISOR - 05/12/2024 12:40 PM EDGING SUPERVISOR Surgery [facility] [place] [address] [place] [phone] Davis Law MD [address] [place] [address] BILATERAL VASECTOMY Scheduled Procedures Name Priority Associated Diagnoses Date/Ti me VASECTOMY Encounter for sterilization 05/12/2024 11:30 AM EDGING SUPERVISOR Health Maintenance Due Date Last Done Comments Depression Screening 1989 Hepatitis C Screening 1989 Varicella Vaccines (1 of 2 - 13+ 2-dose series) 2002 Regular Well Visit/Exam 18-64 12/18/2007 Covid-19 Vaccine ( season) 2023 05/26/2021, 04/21/2021 Influenza Vaccine (#1) 2023 3, 02/02/2022, 01/11/2021, Additional history exists DTaP/Tdap/Td Vaccine (7 - Td or Tdap) 10/20/2025 10/21/2015, 10/02/2014, 01/06/2002, Additional history exists Hepatitis B Screening Completed 05/28/2016 , 11/24/2015, 10/21/2015, Additional history exists HPV Vaccines Aged Out No longer eligi ble based on patient's age to complete this topic Pneumococcal vaccine <65 Aged Out No longer eligible based on patient's age to complete this topic Insurance [facility] Care Teams Conveyor Tender Relationship Specialty Start Date End Date Unknown, Notinfile PCP - General 04/16/24
[2024-05-08 15:58] VITALS: BP 122/79; PULSE 80; RESP 16; TEMP 36.6; O2SAT 99
--- OUTSIDE RECORDS SUMMARY | 2024-05-08 15:59 | XMS_ITS | Continuity of Care Document ---
Author Name [facility] Organization [facility] Care Team Providers Care Feed Mixer Name Role Phone [facility] Unavailable Unavailable Problems Combined list of problems [...] Known Allergies Drug allergy (disorder) active 7 [facility], [place], [place] Immunizations Combined list of available immunizations from the Department of Defense and Veterans Affairs facilities. Immunization Series Date Given Administered By Site Reaction Lot Number CVX Code Drug Case Worker Status Comments Source influenza, injectable, quadrivalent- pf 2022 [id number] Seqirus complet ed influenza , injectabl e, quadrival ent-pf 03/01/23 Given Ambulat ory Pharmac y influenza, injectable, quadrivalent- pf 2021 [id number] 150 GlaxoSmithKli ne complet ed influenza , injectabl e, quadrival ent-pf 02/02/22 Given Ambulat ory Pharmac y COVID Vaccine Pfizer 2021 [id number] PFIZER complet ed COVID Vaccine Pfizer 05/26/21 Given Ambulat ory Pharmac y COVID Vaccine Pfizer 2021 [id number] PFIZER complet ed COVID Vaccine Pfizer 04/21/21 Given Ambulat ory Pharmac y influenza, injectable, quadrivalent- pf 2020 [id number] 150 GlaxoSmithKli ne complet ed influenza , injectabl e, quadrival ent-pf 01/11/21 Given Ambulat ory Pharmac y influenza, injectable, quadrivalent 2019 [id number] Seqirus complet ed influenza , injectabl e, quadrival ent 11/13/20 Given Ambulat ory Pharmac y influenza, injectable, quadrivalent 2018 [id number] 158 Seqirus complet ed influenza , injectabl e, quadrival ent 02/09/19 Given Ambulat ory Pharmac y anthrax vaccine 2018 [id number] 24 Emergent Biosolutions complet ed anthrax vaccine 01/28/19 Given Ambulat ory Pharmac y vaccinia (smallpox) vaccine 2018 [id number] 75 Sanofi Pasteur Incorporated complet ed vaccinia (smallpox ) vaccine 11/09/18 Given Ambulat ory Pharmac y anthrax vaccine 2018 [id number] 24 Emergent Biosolutions complet ed anthrax vaccine 11/09/18 Given Ambulat ory Pharmac y anthrax vaccine 1 2018 [id number] 24 Emergent [employer] [place] (M[place]) complet ed anthrax vaccine DoD vaccinia [...] quadrivalent, preservative free 1 2017 [id number] 150 [employer] (SKB) complet ed Influenza , injectabl e, quadrival ent, preservat maura free DoD Influenza, inj, MDCK, quadrivalent- pf 2016 [id number] 171 Seqirus complet ed Influenza , inj, MDCK, quadrival ent-pf 02/12/17 Given Ambulat ory Pharmac y Influenza, injectable, Madin Paola Canine Kidney, preservative free, quadrivalent 1 2016 [id number] 171 Seqirus (SEQ) comple t ed Influenza , injectabl e, Madin Paola Canine Kidney, preservat maura free, quadrival ent DoD hepatitis A-hepatitis B vaccine 2016 Candice t Arm [id number] 104 GlaxoSmithKli ne complet ed hepatitis A-hepatit is B vaccine 05/28/16 Given Ambulat ory Pharmac y hepatitis A and hepatitis B vaccine 3 2016 NIURKA HORTON [id number] 104 [facility] ([facility]) complet ed hepatitis A and hepatitis B vaccine DoD influenza, seasonal, injectable-pf 2015 zzRig ht Arm [id number] 140 CSL Behring complet ed influenza , seasonal, injectabl e-pf 01/09/16 Given Ambulat ory Pharmac y Influenza, seasonal, injectable, preservative free 0 2015 YNES STERN I [id number] [facility] [employer] ([facility]) complet ed Influenza , seasonal, injectabl e, preservat maura free DoD hepatitis A-hepatitis B vaccine 2015 [id number] 104 GlaxoSmithKli ne complet ed hepatitis A-hepatit is B vaccine 11/24/15 Given Ambulat ory Pharmac y hepatitis A and hepatitis B vaccine 2 2015 [id number] 104 [employer] ([facility]) complet ed hepatitis A and hepatitis B vaccine DoD adenovirus vaccine, live 2015 [id number] Teva Pharmaceutica complet ed adenoviru s vaccine, live 10/21/15 Given Ambulat ory Pharmac y tetanus, diphtheria, acellular pertu is 2015 [id number] 115 GlaxoSmithKli ne complet ed tetanus, diphtheri a, acellular pertussis 10/21/15 Given Ambulat ory Pharmac y meningococcal A,C,Y,W-135 (MCV4P) 2015 [id number] 114 sanofi pasteur complet ed meningoco ccal [...] inactivated 1 2015 [id number] 10 Sanofi Pasteur ([facility]) complet ed polioviru s vaccine, inactivat ed DoD hepatitis A and hepatitis B vaccine 1 2015 [id number] 104 [facility] (SKB) complet ed hepatitis A and hepatitis B vaccine DoD meningococcal polysaccharid e (groups A, C, Y and W-135) diphtheria toxoid conjugate vaccine (MCV4P) 1 2015 [id number] 114 Sanofi Pasteur ([facility]) complet ed meningoco ccal polysacch aride (groups A, C, Y and W-135) diphtheri a toxoid conjugate vaccine (MCV4P) DoD tetanus toxoid, reduced diphtheria toxoid, and acellular pertu is vaccine, adsorbed 1 2015 [id number] 115 [facility] (SKB) complet ed tetanus toxoid, reduced diphtheri a toxoid, and acellular pertussis vaccine, adsorbed DoD Adenovirus, type 4 and type 7, live, oral 1 2015 [id number] [address] [place] [address] ([facility]) complet ed Adenoviru s, type 4 and [...] y tetanus-dipht h toxoids (Td) adult/adol 2001 [id number] 09 sanofi pasteur complet ed tetanus-d iphth [...] ADM Date DC Date Status Disposition Source [facility] C Immunizat ions (Post)) OUTPATIENT [id number] IET LAMAR VEGA 10/22 Released w/o Limitations [facility] Immuniz ations (Post)) [facility]EX [facility]) OUTPATIENT [id number] Notes Entered by: FABIO ANDREWS 15 Jan 2016 0858 ------- ------- ------- ------- -- Flu Vaccina tion FABIO ANDREWS 01/14 Released w/o Limitations [facility]) DEX [facility]) OUTPATIENT [id number] RIGHT KNEE PAIN JONES PACHECO 01/16 Released w/o Limitations [facility] [employer] [place]) [facility] [employer] OUTPAT[place] [id number] Iliotib ial band syndrom e, right leg/AIT JENNIFER PASCAL 01/17 Released w/o Limitations [facility] [employer] [facility] [employer]) [place] [id number] rt knee AIT C 178 HEIKE MIRELES 01/18 Released w/o Limitations [facility] [employer] [facility] [employer] [id number] rt knee AIT C 178 HEIKE MIRELES E 01/21 Released w/o Limitations [facility] [employer] [facility] [employer]) [place] [id number] rt knee AIT C 78 ALEJANDRA SPRINGER 01/23 Released with Work/Duty Limitations [facility] [employer] [facility], [employer] [place]([facility] S[facility] [place]) OUTPATIENT [id number] immuniz NIURKA Trent 05/28 Released w/o Limitations [facility], [employer] [facility], [employer] [place] OUTPATIENT [id number] annual KAYLIN RODRIGUEZ 10/21 Released w/o Limitations [facility], [employer] ) [facility], [employer] [place] OUTPATIENT [id number] nausea/ vomitin g ELISA TEJADA 02/25 Released w/o Limitations [facility], [employer] [facility], [employer] [place] [facility] OUTPATIENT [id number] NOELLE Goldman 03/20 Released w/o Limitations [facility], [employer] [facility], [employer] [place] [facility] TELE CONSULT [id number] Notes Entered by: CADEN GUNDERSON CONCEPT ION 21 Mar 2017 1008 ------- ------- ------- ------- -- needs Lab orders for ABCP EZIO WONG PA-C 03/21 [facility], [employer] [place] [facility], [employer] [place] OUTPATIENT [id number] ABCP screeni ng 320 EZIO WONG PA-C 04/03 Released w/o Limitations [facility], [employer] [facility] [facility], [facility] [place]) OUTPATIENT [id number] abcp class HA KELLOGG 04/04 Released w/o Limitations [facility], [employer] [facility], [facility] [place]) [place]PATIENT [id number] MATEUS JOHN 04/11 Released w/o Limitations [facility], [employer] [facility], [facility] [place]) [place] [id number] MATEUS JOHN 04/18 Released w/o Limitations [facility], [employer] [facility], [employer]) [place]IENT [id number] LUDIVINA MCCANN 04/25 Released w/o Limitations [facility], [employer] [facility], [employer] [place]) [place] [id number] HA KELLOGG 05/09 Released w/o Limitations [facility], [employer]([facility]) OUTPATIENT [id number] Notes Entered by: MEAGAN BRYANT 02 Aug 2017 0924 ------- ------- ------- ------- -- Nose Pain MEAGAN ESTES 08/02 Released w/o Limitations [place]([facility]) [facility], [place], [place]([facility]) OUTPATIENT [id number] annual MALLORIE HARPER V 10/06 Released w/o Limitations [facility], [place], [place]([facility] ) [facility], [place] Hearing [facility]) OUTPATIENT [id number] Notes Entered by: MICHELLE HARPER V 06 Oct 2017 1439 ------- ------- ------- ------- -- annual MALLORIE HARPER V 10/06 Released w/o Limitations [facility], [place] ) [facility], [place] [facility] TELE CONSULT [id number] Notes Entered by: TOMER RICKETTS 11 Dec 2017 1036 ------- ------- ------- ------- -- CECI NAM APPT/SE E NONA ALSTON 12/11 [facility], [employer]) [facility], [place] [facility] [place] OUTPATIENT [id number] PHA NONA [place] 12/24 Released w/o Limitations [facility] [place], [place] [place] OUTPATIENT [id number] n/v NOELLE BREEN 02/16 Released w/o Limitations [facility], [employer] [place] [facility] [facility], [place]([facility] Hearing [facility]) OUTPATIENT [id number] annual KVNG HEREDIA 09/08 Released w/o Limitations [facility], [place]([facility] ) [facility], [place]([facility] S01A Strike) OUTPATIENT [id number] L/toe/p NONA Lujan 10/27 Released with Work/Duty Limitations [facility], [place]([facility] S[facility]A Strike) [facility], [place]([facility]) OUTPATIENT [id number] Notes Entered by: Miguel [place] 09 Nov 2018 0859 ------- ------- ------- ------- -- Smallpo x Screeni NONA Coley 11/09 Released w/o Limitations [facility], [place]([facility]) [facility], [place]([facility] S[facility]A [facility]) TELE CONSULT [id number] Notes Entered by: CAYLA LOBO RA 28 Jan 2019 1335 ------- ------- ------- ------- -- VALENCIA/Silvia HASE 1/SEE NOTES NONA [place] 01/28 [facility], [place]([facility] S[facility]) [facility], [place]([facility] S[facility]) OUTPATIENT [id number] phase 1/ETS/s BRADLEY Jack 02/02 Released w/o Limitations [facility], [place]([facility] S[facility]) [facility], [place]([facility] S[facility]C Rakk) OUTPATIENT [id number] Notes Entered by: BRIAN ROWE 02 Feb 2019 1514 ------- ------- ------- ------- -- PHASE 1 ARLET VALENTINO 02/02 Released w/o Limitations [facility], [place]([facility] S[facility]C Rakk) [facility], [place]([facility] S[facility]A [facility]) TELE CONSULT [id number] Notes Entered by: SAFIA SALAS 08 Feb 2019 1441 ------- ------- ------- ------- -- resched EVANGELISTA Rider 02/08 Referred for Appointment [facility], [place]([facility] S[facility]) [facility], [place]([facility] S[facility]A [facility]) TELE CONSULT [id number] Notes Entered by: DEBBY BEATTY 16 Feb 2019 0921 ------- ------- ------- ------- -- Phase 2 ETS Physica l NETTA DOMINGUEZ 02/16 Other Not Elsewhere Classified [facility], [place]([facility] S[facility]) [facility], [place]([facility] S[facility]A [facility]) TELE CONSULT [id number] Notes Entered by: EUN DOMINGUEZ 16 Feb 2019 1513 ------- ------- ------- ------- -- ATTEMPT TO SCHEDUL E PHASE 2 ETS PHYSICA L NETTA DOMINGUEZ 02/16 Other Not Elsewhere Classified [facility], [place]([facility] S[facility]A [facility]) [facility], [place] [place]([facility] S01A [facility]) OUTPATIENT [id number] Phase2/ ets NONA [place] 02/17 Released w/o Limitations [facility], [place]([facility] S01A Strike) No Facility Access History [id number] 06/03 No Facilit y Access Ambulator y Pharmacy [facility] [id number] 06/03 Ambulat ory Pharmac y 0055C-375 th MEDGRP-Pr sera Between Visit [id number] 04/02 Discharge Disposition: Home or Self Care [...] Tone) Automated 0208T 2017 MALLORIE HARPER V [facility] Medical Nutrition Therapy Group (2 or More Individuals) Each 30 Minutes Medical Nutrition Therapy Group (2 or More Individuals) Each 30 Minutes 24031 2017 HA KELLOGG [facility] Medical Nutrition Therapy Group (2 or More Individuals) Each 30 Minutes Medical Nutrition Therapy Group (2 or More Individuals) Each 30 Minutes [id number] 2017 LUDIVINA MCCANN [facility] Medical Nutrition Therapy Group (2 or More Individuals) Each 30 Minutes Medical Nutrition Therapy Group (2 or More Individuals) Each 30 Minutes [id number] 2017 DORA MATEUS E [facility] Medical Nutrition Therapy Group (2 or More Individuals) Each 30 Minutes Medical Nutrition Therapy Group (2 or More Individuals) Each 30 Minutes 80086 2017 DORA, MATEUS E [facility] Medical Nutrition Therapy Group (2 or More Individuals) Each 30 Minutes Medical Nutrition Therapy Group (2 or More Individuals) Each 30 Minutes [id number] 2017 HA KELLOGG [facility] Threshold Audiogram (Pure Tone) Automated Threshold Audiogram (Pure Tone) Automated 0208T 2016 KAYLIN RODRIGUEZ Hepatitis A And Hepatitis B (Intramuscular Use) Adult Dosage Hepatitis A And Hepatitis B (Intramuscular Use) Adult Dosage 33626 2016 MESSMER, NIURKA Hep A-Hep B; Series #: 3; 1.0 mL; IM; Left Arm; Mfg: [employer]; Lot: [id number]. [facility] Physician Supervised Injection Intramuscular Physician Supervised Injection Intramuscular 97875 2016 NIURKA HORTON [facility] Physical Therapy Service Re-Evaluation Physical Therapy Service Re-Evaluation 27404 2015 ALEJANDRA SPRINGER Patient returns to clinic [...] mL of 4 mg/mL Dexamethasone Sodium Phosphate [facility] Modalities Iontophoresis Modalities Iontophoresis 46104 2015 HEIKE MIRELES Physical Medicine - Group Physical Therapy Se ion Physical Medicine - Group Physical Therapy Session [id number] 2015 HEIKE MIRELES Physical Therapy: ___ Se ion Segments, 15 Minutes Each Physical Therapy: ___ Session Segments, 15 Minutes Each 98980 2015 HEIKE MIRELES Physical Medicine - Group Physical Therapy Se ion Physical Medicine - Group Physical Therapy Session 23944 2015 HEIKE MIRELES Physical Therapy: ___ Se ion Segments, 15 Minutes Each Physical Therapy: ___ Session Segments, 15 Minutes Each 32100 2015 HEIKE MIRELES [facility] Injection, dexamethasone sodium phosphate, 1 mg 2015 JENNIFER PASCAL Modalities Iontophoresis Modalities Iontophoresis 80079 2015 JENNIFER PASCAL A isted Exercises For ROM Assisted Exercises For ROM 14841 2015 JENNIFER PASCAL Physical Therapy Service Evaluation Physical Therapy Service Evaluation 30678 2015 JENNIFER PASCAL Influenza Split Virus Vaccine 0.5mL Dosage Intramuscular Preservative Free 2015 FABIO ANDREWS [facility] Immunization Administration By Injection, One Vaccine Immunization Administration By Injection, One Vaccine 74717 2015 JULIANA FABIO M [facility] Tdap Vaccine Tdap Vaccine 86240 2015 [facility] Meningococcal Conjugate Vaccine Quadrivalent Serogroups A, C, Y, W-135 2015 [facility] Vaccines Viral Polio, Inactivated Vaccines Viral Polio, Inactivated 90548 2015 [facility] Hepatitis A And Hepatitis B (Intramuscular Use) Adult Dosage Hepatitis A And Hepatitis B (Intramuscular Use) Adult Dosage 89321 2015 [facility] Immunization Administration By Injection, Each Additional Vaccine Immunization Administration By Injection, Each Additional Vaccine 82870 2015 [facility] Immunization Administration By Injection, One Vaccine Immunization Administration By Injection, One Vaccine 19027 2015 [facility] Immunization Admin Intranasal / Oral Each Additional Vaccine Immunization Admin Intranasal / Oral Each Additional Vaccine 44085 2015 [facility] Vaccines Adenovirus Type 4 Live, For Oral Use Vaccines Adenovirus Type 4 Live, For Oral Use 40186 2015 [facility] Vaccines Adenovirus Type 7 Live, For Oral Use Vaccines Adenovirus Type 7 Live, For Oral Use 40297 2015 [facility] Health And Behav Intervention, Each Additional 15 Min Grp (2 Or More) Health And Behav Intervention, Each Additional 15 Min Grp (2 Or More) 68422 ARLET VALENTINO [facility] Non-Physician Phone Call To Patient/Provider Brief (5-10min) Non-Physician Phone Call To Patient/Provider Brief (5-10min) 30821 NETTA DOMINGUEZ [facility] Social History Combined list of available smoking, [...] of Defense and Veterans Affairs (VA).VA Functional [place] Measurement (FIM) Scale: 1 = Total Assistance (Subject = 0% +), 2 = Maximal Assistance (Subject = 25% +), 3 = Moderate Assistance (Subject = 50% +), 4 = Minimal Assistance (Subject = 75% +), 5 = Supervision, 6 = Modified [place] (Device), 7 = Complete [place] (Timely, Safely). Assessment Date/Time Source Assessment Type Assessment Skill Assessment Score Assessment Details No data available for this section
--- NOTE | 2024-05-08 16:46 | ED.EAR ---
HPI - Ear Problem General Chief complaint: Ear Stated complaint: ear ache Source: patient Mode of arrival: ambulatory History of Present Illness HPI Narrative: Pt presents for evaluation of right sided ear pain. Symptom onset today. He has experienced nasal congestion over the past few days. Several family members have influenza. He denies any fever, chills, nausea, vomiting, diarrhea, cough or SOB. He feels like his right ear needs to pop. He has muffled hearing on that side. He does not smoke. Related Data Allergies Allergy/AdvReac Type Severity Reaction Status Date / Time No Known Allergies Allergy Verified 05/08/24 16:02 Review of Systems Review of Systems: CONSTITUTIONAL: Denies fever, chills, or sweats. EYES: Denies visual changes, redness, or discharge. ENT: Reports right sided ear pain with sensation that his ear needs to pop. Reports muffled hearing on the right. Reports nasal congestion. Denies sore throat CARDIOVASCULAR: Denies chest pain, palpitations, or edema. RESPIRATORY: Denies cough or dyspnea. GASTROINTESTINAL: Denies abdominal pain, nausea, vomiting, or diarrhea. GENITOURINARY: Denies dysuria or hematuria. SKIN: Denies rash or itching. MUSCULOSKELETAL: Denies back pain, joint pain, or myalgia. NEUROLOGIC: Denies headache, numbness, dizziness, or weakness. PSYCHIATRIC: Denies anxiety or depression. PMFSH Past Medical History Medical History (Reviewed 05/08/24 @ 16:53 by Chan Herrmann, [facility], ) No pertinent past medical history Surgical History Surgical History (Reviewed 05/08/24 @ 16:53 by Chan Herrmann, [facility], ) No pertinent past surgical history Family History Family History (Reviewed 05/08/24 @ 16:53 by Chan Herrmann, [facility], ) Mother Family history non-contributory Social History Social History (Reviewed 05/08/24 @ 16:53 by Chan Herrmann, [facility], ) Smoking status: Never smoker Alcohol intake: current Alcohol use details: social Substance use type: does not use Living arrangements: with family Gender identity (if verbalized by the patient): Male Exam Narrative: GENERAL: Well-appearing, well-nourished, and in no acute distress. HEAD: Normocephalic, atraumatic. EYES: PERRLA and EOMI. ENT: Nares clear, no rhinorrhea or epistaxis. Mucous membranes moist. Oropharynx without tonsillar hypertrophy exudate or other lesions. Right TM is erythematous and bulging NECK: Supple. No adenopathy or masses. No carotid bruits or JVD CHEST: Clear to auscultation. No respiratory distress. No wheezes rales or rhonchi HEART: Regular rate and rhythm. No murmur heard. Normal peripheral pulses. ABDOMEN: Soft, nontender, nondistended, normal active bowel sounds. EXTREMITIES: Normal range of motion. No edema. SKIN: Warm, dry, no rash. NEURO: No focal deficits. Alert and oriented x3. PSYCH: Normal mood and affect. Course Course Emergency Course: This is a 33 yr old male who presented for evaluation of right sided ear pain. He has evidence of otitis media on exam. Will dc with augmentin. I offered to swab him for flu based upon exposures to several family members with flu. He declined. I recommended he try sudafed and flonase to decrease pressure in the ear. Ibuprofen should help with pain. Follow up with primary provider. Go to the ER for worsening symptoms. Pt in agreement with plan of care. Level of Care: Express Care Visit Vital Signs Vital signs: Vital Signs Temperature 36.6 C 05/08/24 15:58 Pulse Rate 80 05/08/24 15:58 Respiratory Rate 16 05/08/24 15:58 Blood Pressure 122/79 05/08/24 15:58 Pulse Oximetry 99 05/08/24 15:58 Oxygen Delivery Room Air 05/08/24 15:58 Temperature 36.6 C 05/08/24 15:58 Pulse Rate 80 05/08/24 15:58 Respiratory Rate 16 05/08/24 15:58 Blood Pressure 122/79 05/08/24 15:58 Pulse Oximetry 99 05/08/24 15:58 Oxygen Delivery Room Air 05/08/24 15:58 Medical Decision Making Vital Signs Vital Signs: Vital Signs Temperature 36.6 C 05/08/24 15:58 Pulse Rate 80 05/08/24 15:58 Respiratory Rate 16 05/08/24 15:58 Blood Pressure 122/79 05/08/24 15:58 Pulse Oximetry 99 05/08/24 15:58 Oxygen Delivery Room Air 02/22/25 15:58 Temperature 36.6 C 05/08/24 15:58 Pulse Rate 80 05/08/24 15:58 Respiratory Rate 16 05/08/24 15:58 Blood Pressure 122/79 05/08/24 15:58 Pulse Oximetry 99 05/08/24 15:58 Oxygen Delivery Room Air 05/08/24 15:58 Discharge Plan Discharge Clinical Impression: Acute right otitis media Patient Disposition: Home, Self-Care Condition: Stable Instructions: Antibiotic Form, Ear Infection (GEN) Additional Instructions: FLONASE, SUDAFED AND IBUPROFEN SHOULD HELP YOUR SYMPTOMS Patient Language: Mongolian Prescriptions: New amoxicillin-pot clavulanate 875-125 mg tablet 1 tablet PO Q12H Qty: 20 0RF Follow-up/Referrals: [facility], [Primary Care Provider] - Time of Disposition: 16:45
== END 2024-05-08 16:50 | disposition home or self-care (01) ==
PROVIDERS: Emergency Provider Nurse Practitioner
DX: H66.91 Otitis media, unspecified, right ear (principal)
CPT/HCPCS: 99213; G0463